=== PATIENT | female | born 1965 | race Caucasian/White ===

== ENCOUNTER 2024-02-12 06:38 | Day surgery (SDC) | payer OTHER, SELFPAY ==
[2024-02-12] VITALS (12 sets, daily range): BP systolic 123–139; BP diastolic 72–95; PULSE 57–70; RESP 15–16; TEMP 36.2–36.3; O2SAT 96–99; BMI 30.4
--- NOTE | 2024-02-12 07:24 | W.PM.H&PU ---
History & Physical Update History & Physical Update H&P Reviewed and patient assessed: No changes noted
[2024-02-12] MEDS: ETHYL CHLORIDE 1 APPLICATION 1 APPLIC TOPICAL (07:25)
[2024-02-12] MEDS: BUPIVACAINE 0.5 %/EPI 1:200K INJECTION (07:25)
[2024-02-12] MEDS: LIDOCAINE 1% MDV INJECTION (07:25)
--- NOTE | 2024-02-12 07:26 | P.ORPRC_ITS ---
Procedure Note Date of procedure: 02/12/24 Procedure: PREOPERATIVE DIAGNOSIS: 1. Right carpal tunnel syndrome POSTOPERATIVE DIAGNOSIS: 1. Right carpal tunnel syndrome PROCEDURE: 1. Right open carpal tunnel release SURGEON: Tarik Ayala MD. YOUTH SERVICES SPECIALIST: Micaela Stringer P.A.-C. An assistant federal public defender was critical for this case to aid in patient positioning, tissue retraction, limb manipulation/positioning, and closure. ANESTHESIA: Local anesthetic IMPLANTS: None ESTIMATED BLOOD LOSS: 1 mL TOURNIQUET: 12 min at 250 mmHg COMPLICATIONS: None evident INDICATIONS: The patient is a pleasant 58-year-old female with history of right hand numbness and tingling. Symptoms were not improving with conservative treatment, and patient elected to proceed with surgical intervention consisting of right carpal tunnel release. Prior to surgery, the risks and benefits of the procedure were discussed with patient, all questions were answered, and informed consent was obtained. DESCRIPTION OF PROCEDURE: Patient was seen preoperatively and operative site was marked. After sterile prep, the subcutaneous tissues overlying the right carpal tunnel were injected with a combination of 1% lidocaine with epinephrine and 0.25% bupivacaine. Patient was then brought to the operating room and placed in the supine position on the OR table. A tourniquet was placed on the patient's right arm and right upper extremity was prepped and draped in usual sterile fashion. A surgical time-out was performed confirming patient name, procedure, and location. A skin incision measuring approximately 3-4 cm was made in line with the ring finger extending from the distal wrist flexion crease to Fitch's cardinal line. To help control bleeding, the arm was elevated extending with Esmarch and tourniquet inflated to 250 mmHg. Blunt dissection was used to dissect through subcutaneous tissues and palmar fascia. Transverse carpal ligament was identified and was sharply incised proximally with care taken to protect the underlying median nerve. The transverse carpal ligament was then sharply divided along its ulnar border using tenotomy scissors and a [place] blade with care taken to protect the underlying median nerve. Once the transverse carpal ligament was divided, the antebrachial fascia was released proximally. The wound was then irrigated with normal saline, and the tourniquet was released. Total tourniquet time was 12 minutes. Hemostasis was achieved with bipolar electrocautery. The skin incision was closed with 4-0 nylon horizontal mattress sutures, and a sterile dressing was applied. Patient was then transferred to the recovery room in stable condition. POSTOPERATIVE PLAN: 1. Patient will be discharged to home day of surgery. 2. Ice and elevation as needed for pain and swelling. 3. Tylenol and/or ibuprofen as needed for pain. 4. They were given instructions for wound care and finger range of motion exercises. 5. Return to the clinic for follow-up evaluation in 10-14 days for wound check and suture removal.
--- NOTE | 2024-02-12 07:38 | SUR.PREOP ---
SAME DAY SURGERY LOCAL INJECTION SITE VERIFICATION WAS PERFORMED BY SURGEON/PA AND PATIENT PRIOR TO LOCAL ANESTHETIC BEING INJECTED TO OPERATIVE SITE.
[2024-02-12] MEDS: BACITRACIN OINTMENT BULK TUBE 1 APPLIC TOPICAL (08:05)
== END 2024-02-12 08:34 | disposition home or self-care (01) ==
PROVIDERS: Visit Provider Orthopaedic Surgery
PROC: (CPT 64721; principal; 2024-02-12 07:30)
DX: G56.01 Carpal tunnel syndrome, right upper limb (principal)
CPT/HCPCS: 64721; J2003; J3490